=== PATIENT | male | born 1970 | race Caucasian/White ===

== ENCOUNTER → 2018-10-26 | Outpatient (CLI) | payer OTHER ==
--- NOTE | 2018-10-26 10:18 | CARD ---
MR#: [id number] Date of Study: 10/26/2018 Ordering Physician: CONCHITA MUSA, Referring Physician: CONCHITA MUSA Tech: Nina Peralta RDCS APPROVED REPORT EXAM: Two-dimensional and M-mode echocardiogram with Doppler and color Doppler. Other Information Quality : Fair INDICATION Hypertension/HCVD Cardiac Disease: CAD History of aortic dilatation RISK FACTORS Hypertension Obesity Hyperlipidemia 2D DIMENSIONS RVDd2.7 (2.9-3.5cm)Left Atrium(2D)3.8 (1.6-4.0cm) IVSd1.0 (0.7-1.1cm)Aortic Root(2D)3.1 (2.0-3.7cm) LVDd5.6 (3.9-5.9cm)LVOT Diameter2.6 (1.8-2.4cm) PWd1.0 (0.7-1.1cm)LVDs3.9 (2.5-4.0cm) FS (%) 31.1 %SV89.4 ml LVEF(%)58.2 (>50%) Aortic Valve AoV Peak Gunnar.126.1cm/sAoV VTI24.9cm AO Peak GR.6.4mmHgLVOT Peak Gunnar.92.0cm/s AO Mean GR.4mmHgAVA (VMAX)3.91cm2 MAKAYLA (VTI)4.70cm2 Mitral Valve MV E Owwbkdyl488.1cm/sMV DECEL LJYJ849ad MV A Cgouznus74.2cm/sE/A Ratio1.2 Pulmonary Vein S1 Ulgcaftv68.5cm/sD2 Vzcvyesj93.0cm/s LEFT VENTRICLE The left ventricle is normal size. There is normal left ventricular wall thickness. Left ventricle sy stolic function is normal. The Ejection Fraction is 55%. There is normal LV segmental wall motion. RIGHT VENTRICLE The right ventricle is normal size. The right ventricular systolic function is normal. ATRIA The left atrium size is normal. The right atrium size is normal. The interatrial septum is intact wit h no evidence for an atrial septal defect or patent foramen ovale as noted on 2-D or Doppler imaging. AORTIC VALVE The aortic valve is not well visualized but appears to be functioning normally by Doppler interrogati on. Doppler and Color Flow revealed no significant aortic regurgitation. There is no significant aort ic valvular stenosis. MITRAL VALVE The mitral valve is normal in structure and function. There is no evidence of mitral valve prolapse. There is no mitral valve stenosis. Doppler and Color Flow revealed no mitral valve regurgitation note d. TRICUSPID VALVE The tricuspid valve is normal in structure and function. Doppler and Color Flow revealed no tricuspid valve regurgitation noted. There is no tricuspid valve stenosis. PULMONIC VALVE The pulmonic valve is not well visualized. Doppler and Color Flow revealed no pulmonic valvular regur gitation. There is no pulmonic valvular stenosis. GREAT VESSELS The aortic root is normal in size. The ascending aorta is mildly dilated at 3.7 cm. The IVC is normal in size and collapses >50% with inspiration. PERICARDIAL EFFUSION There is no evidence of significant pericardial effusion. Critical Notification Critical Value: No <Conclusion> Left ventricle systolic function is normal. The Ejection Fraction is 55%. There is normal LV segmental wall motion. No significant valvular abnormalities. There is no evidence of significant pericardial effusion. Signed by : Braden Saenz, Electronically Approved : 10/26/2018 10:16:29
== END | disposition home or self-care (01) ==
LOC: ECHO 08:30
PROVIDERS: ATTEND Internal Medicine Cardiovascular Disease
DX: I10 Essential (primary) hypertension (principal); E78.2 Mixed hyperlipidemia; I25.10 Atherosclerotic heart disease of native coronary artery without angina pectoris; I77.810 Thoracic aortic ectasia; Z98.62 Peripheral vascular angioplasty status; E66.9 Obesity, unspecified
CPT/HCPCS: 93306

== ENCOUNTER → 2019-02-28 | Day surgery (SDC) | payer OTHER ==
[~2019-02-28] MED LIST: AMLO1CAP10 PO; ATORVASTATIN CA80 MG PO; BUSP10TA PO; CARV25TA PO; DOXA8TAB59 PO; IV RINGERS,LACTATED 1000ML 1,000 ML IV SCH; LIDOCAINE 2% PF 5 ML VIAL. ONE; PROPOFOL 40 ML IV ONE
[2019-02-28 18:15] VITALS: BP 144/96
--- NOTE | 2019-03-01 03:58 | CONS ---
DATE OF CONSULTATION: 02/28/2019 GASTROENTEROLOGY CONSULTATION REASON FOR CONSULTATION: Colorectal screening. HISTORY OF PRESENT ILLNESS: A 49-year-old male with past medical history significant for obesity, hyperlipidemia, hypertension, is seen for a screening colon exam. Bowel habits are regular without diarrhea or constipation. There has been no melena and/or hematochezia. Weight and appetite have been stable. There is no family history of colon cancer. This is a first colonoscopy. PAST MEDICAL HISTORY: Hypertension, hyperlipidemia, obesity. ALLERGIES: CODEINE. MEDICATIONS: Include amlodipine, atorvastatin, BuSpar, carvedilol, doxazosin. PAST HISTORY: Also significant for cardiac stent, heart attack, heart disease. FAMILY HISTORY: Significant for malignant hyperthermia with his brother. SOCIAL HISTORY: Nonsmoker, nondrinker. REVIEW OF SYSTEMS: As per records. PHYSICAL EXAMINATION: GENERAL: Reveals a well-nourished, well-developed male, who is alert and cooperative, in no acute distress. VITAL SIGNS: Temperature is 98.6, pulse 94, respiratory rate 20. HEENT: Normocephalic, atraumatic head. Pupils and extraocular muscles are not tested. Sclerae anicteric. NECK: Supple. LUNGS: Clear. CARDIOVASCULAR: Reveals an S1, S2 without S3, S4 or appreciable murmur. ABDOMEN: Reveals soft abdomen, normal bowel sounds, without appreciable hepatosplenomegaly. EXTREMITIES: Reveals no cyanosis, clubbing, edema. IMPRESSION: Colorectal screening is warranted at this time. Risks and benefits of the procedure including risk of hemorrhage and perforation have been discussed. The patient is willing to proceed at this time. I thank Dr. Cote for allowing us to consult and participate in the patient's care. BHAVANA SOTO MD DR: CALLY/melvin JOB#: [id number] / [id number] CONTRERAS Ingram MD
--- NOTE | 2019-03-02 11:09 | PATHOLOGY ---
[facility] Accession Number: [id number] . 01 Material submitted: . PART A: sigmoid colon - SIGMOID POLYP PART B: colon - ASCENDING COLON POLYP. Modifiers: ascending . 01 Clinical history: . Screening . 02 Diagnosis: A. Colon biopsy, sigmoid colon polyp: - Tubular adenoma. . B. Colon biopsy, ascending colon polyp: - Tubular adenoma. (JPM:eric; 03/02/2019) QMS/03/02/2019 . 02 Comment: There is no high-grade dysplasia or evidence of malignancy. . 02 Electronically signed: . Jefry Duran MD, Pathologist NPI- [id number] . 01 Gross description: . A. The specimen is received in formalin, labeled "Jimbo Stephanie, sigmoid polyp". Received is a segment of pale talbert soft tissue measuring 0.5 cm in maximum dimensions. The specimen is submitted entirely in cassette A1. . B. The specimen is received in formalin, labeled "Jimbo Stephanie, ascending colon polyp". Received is a segment of pale talbert soft tissue measuring 0.5 cm in maximum dimensions. The specimen is submitted entirely in cassette B1. (CAA; 03/01/2019) QAC/QAC . 02 Pathologist provided ICD-10: D12.5, D12.2 . 02 CPT . 745994, 139763 Specimen Comment: A courtesy copy of this report has been sent to Specimen Comment: [phone], . Specimen Comment: Report sent to / DR DOSHI Specimen Comment: A duplicate report has been generated due to demographic updates. Performed at: [address], [place] [id number] MD Gibran De La O MD Phone: [phone] Performed at: [address] [id number] MD Jefry Duran MD Phone: [phone]
== END | disposition home or self-care (01) ==
LOC: ENDOS 15:34
PROVIDERS: ATTEND Internal Medicine Gastroenterology
DX: Z12.11 Encounter for screening for malignant neoplasm of colon (principal); D12.5 Benign neoplasm of sigmoid colon; D12.2 Benign neoplasm of ascending colon; K64.0 First degree hemorrhoids; I10 Essential (primary) hypertension; E78.5 Hyperlipidemia, unspecified; Z88.5 Allergy status to narcotic agent; Z79.899 Other long term (current) drug therapy; Z95.5 Presence of coronary angioplasty implant and graft
CPT/HCPCS: 45385; 88305; J2001; J2704; 45380